=== PATIENT | male | born 1995 | race Caucasian/White ===

== ENCOUNTER 2018-06-13 18:58 | Emergency (ER) | payer OTHER ==
[2018-06-13] MEDS: ONDANSETRON 4 MG ORAL DISINTEGRATING TAB (Q0162 PER 1MG) PO (19:50)
[2018-06-13] MEDS: NORCO, ANEXSIA 5/325MG TABLET (HYDROcodone/ACETAMINOPHEN) PO (19:51)
[2018-06-13] MEDS: NORCO 5/325MG TABLET (BULK FOR ED) PO (20:45)
== END 2018-06-13 20:50 | disposition home or self-care (01) ==
LOC: M ED 18:58
DX: R51 Headache (principal); S02.2XXA Fracture of nasal bones, initial encounter for closed fracture; W50.0XXA Accidental hit or strike by another person, initial encounter; Y92.89 Other specified places as the place of occurrence of the external cause; Y93.67 Activity, basketball
CPT/HCPCS: Q0162

== ENCOUNTER 2018-06-15 09:39 | Day surgery (SDC) | payer OTHER ==
[2018-06-15] MEDS ORDERED: ONDANSETRON 4MG/2ML VIAL (J2405) As Ordered (12:09)
[2018-06-15] MEDS ORDERED: dexameTHASONE 4 MG/ML 1ML VIAL (J1100) As Ordered (12:09)
[2018-06-15] MEDS ORDERED: MIDAZOLAM INJ 2 MG/2 ML VIAL (J2250) As Ordered (12:09)
[2018-06-15] MEDS ORDERED: PROPOFOL 200 MG/20 ML VIAL As Ordered (12:09)
[2018-06-15] MEDS ORDERED: fentaNYL 100 MCG/2 ML INJECTION (J3010) As Ordered (12:09)
[2018-06-15] MEDS ORDERED: LIDOCAINE 2% INJ 100 MG/5 ML SDV (FOR ANES.) As Ordered (12:09)
[2018-06-15] MEDS: OXYMETAZOLINE NASAL SPRAY (AFRIN) As Ordered (12:14)
[2018-06-15] MEDS ORDERED: PERCOCET 5MG/325MG TAB As Ordered (12:48)
[2018-06-15] MEDS: PERCOCET 5MG/325MG TAB PO (12:49)
[2018-06-15] MEDS ORDERED: fentaNYL 100 MCG/2 ML INJECTION (J3010) IV (13:00)
[2018-06-15] MEDS ORDERED: LR 1,000 ML IV (13:00)
[2018-06-15] MEDS ORDERED: ONDANSETRON 4MG/2ML VIAL (J2405) IV (13:00)
[2018-06-15] MEDS: NORCO, ANEXSIA 5/325MG TABLET (HYDROcodone/ACETAMINOPHEN) PO (13:45)
== END 2018-06-15 15:05 | disposition home or self-care (01) ==
LOC: M SDC 09:39
DX: S02.2XXA Fracture of nasal bones, initial encounter for closed fracture (principal); W21.05XA Struck by basketball, initial encounter
CPT/HCPCS: 21320